=== PATIENT | male | born 1995 | race Caucasian/White ===

== ENCOUNTER 2016-10-17 02:53 | Emergency (ER) | payer OTHER ==
[2016-10-17] MEDS ORDERED: Diphtheria,Pertussis(Acell),Tetanus Vaccine 0.5 ML SDV IM ONE (03:23)
--- NOTE | 2016-10-17 03:23 | EDM.PDOC ---
ED HPI GENERAL MEDICAL PROBLEM - General Chief Complaint: Laceration Stated Complaint: CUT R HAND/NORTON L HAND Time Seen by Provider: 10/17/16 03:10 Source of Information: Reports: Patient History Limitations: Reports: No Limitations - History of Present Illness INITIAL COMMENTS - FREE TEXT/NARRATIVE: The patient is a 20-year-old male with a chief complaint of bilateral hand injuries. His left hand sustained norton to some hot salt water when he was working on an oil well about 4 hours ago. States that he sustained norton to the left hand area. He has some blistering near the base of the thumb. Moderately painful. Additionally, he received a crush injury to the right small finger. This happened just prior to arrival. The patient is left-handed. Moderate pain. No numbness. No weakness. Left Hand Pain Score (Numeric/FACES): 0 Right 5-Little finger Pain Score (Numeric/FACES): 1 - Related Data Allergies Allergy/AdvReac Type Severity Reaction Status Date / Time acetaminophen [From Vicodin] Allergy Nausea and Verified 10/17/16 03:00 Vomiting hydrocodone [From Vicodin] Allergy Nausea and Verified 10/17/16 03:00 Vomiting Home Meds: Home Meds Cephalexin 500 mg PO QID #28 capsule 10/17/16 [Rx] Ibuprofen [IJD: Ibuprofen] 800 mg PO TID PRN #50 tab 10/17/16 [Rx] Ondansetron [Zofran ODT] 4 mg PO Q6H PRN #20 tab.dis 10/17/16 [Rx] oxyCODONE HCl/Acetaminophen [Percocet 5-325 mg Tablet] 1 each PO QID PRN #16 tablet 10/17/16 [Rx] Social & Family History - Tobacco Use Smoking Status *Q: Current Every Day Smoker Years of Tobacco use: 9 Packs/Tins Daily: 1.5 - Caffeine Use Caffeine Use: Reports: Energy Drinks - Recreational Drug Use Recreational Drug Use: No ED ROS GENERAL - Review of Systems Review Of Systems: See Below Constitutional: Reports: No Symptoms Respiratory: Reports: No Symptoms Cardiovascular: Reports: No Symptoms GI/Abdominal: Reports: No Symptoms Musculoskeletal: Reports: Hand Pain ED EXAM, SKIN/RASH Exam: See Below Exam Limited By: No Limitations General Appearance: Alert, WD/WN, No Apparent Distress Eye Exam: Bilateral Eye: Normal Inspection Ears: Normal External Exam Nose: Normal Inspection Throat/Mouth: Normal Inspection, Normal Voice, No Airway Compromise Head: Atraumatic, Normocephalic Neck: Normal Inspection Respiratory/Chest: No Respiratory Distress Cardiovascular: Normal Peripheral Pulses Extremities: Other (Left hand: Dorsal surface of the hand for the base of the thumb to the wrist and distal to the metacarpals is erythematous and warm consistent with superficial and some partial-thickness burn. There are a few clear blisters that are intact at the base of the thumb. Sensation intact throughout, no full-thickness burn. Area of partial thickness burn is a few centimeters by 3 cm. Right hand: Distal tip of the pinky finger is completely crushed. The nail is completely avulsed from the bed and there is a significant nail bed injury. Mild bleeding. Full range of motion. Hand is otherwise uninjured.) ED SKIN PROCEDURES - Laceration/Wound Repair Right Hand Lac/Wound length In cm: 1 Appearance: Subcutaneous, Irregular, Mildly Contaminated Distal NVT: Neuro & Vascular Intact, No Tendon Injury Anesthetic Type: Digital Local Anesthesia - Lidocaine (Xylocaine): 1% Plain Local Anesthetic Volume: 1cc Skin Prep: Providone-Iodine (Betadine) Exploration/Debridement/Repair: Wound Explored, in a Bloodless Field, Explored to Base, No Foreign Material Found Closed with: Sutures Suture Size: other (5-0) # of Sutures: 1 Suture Type: Nylon, Simple Suture Size: other (5-0) # of Sutures: 2 Repaired with: Vicryl Tetanus Status Addressed: Yes Complications: No Progress/Comments: Nail bed stented open with foil, sutures used to tack foil stent in place. Course - Vital Signs Last Recorded V/S: Last Vital Signs Temp 36.9 C 10/17/16 03:00 Pulse 88 10/17/16 05:08 Resp 16 10/17/16 05:08 BP 122/80 10/17/16 05:08 Pulse Ox 96 10/17/16 05:08 - Orders/Labs/Meds Orders: Active Orders 24 hr Category Date Time Status Vaccines to be Administered [RC] PER UNIT ROUTINE Care 10/17/16 03:24 Active Fingers Fifth Digit Rt F9 [CR] Stat Exams 10/17/16 03:03 Taken Meds: Medications Discontinued Medications Generic Name Dose Route Start Last Admin Trade Name Freq PRN Reason Stop Dose Admin Diphtheria/Tetanus/Acell Pertussis 0.5 ml 10/17/16 03:23 10/17/16 03:40 Adacel IM 10/17/16 03:24 0.5 ml .ONCE ONE Administration Fentanyl 50 mcg 10/17/16 03:25 10/17/16 03:36 Sublimaze IVPUSH 50 mcg ONETIME PRN Administration Pain Cefazolin Sodium 1,000 mg/ 50 mls @ 200 mls/hr 10/17/16 03:23 10/17/16 04:57 Sodium Chloride IV 10/17/16 03:37 Not Given ONETIME ONE Cefazolin Sodium/Dextrose 1 gm 50 mls @ 100 mls/hr 10/17/16 03:37 10/17/16 04 :00 / Premix IV 10/17/16 04:06 100 mls/hr STAT STA Administration Cefazolin Sodium/Dextrose Confirm 10/17/16 03:36 10/17/16 04:57 Ancef Administered 10/17/16 03:37 Not Given Dose 50 mls @ as directed .ROUTE .STK-MED ONE Lidocaine HCl 10 ml 10/17/16 03:26 10/17/16 04:57 Xylocaine 1% INJECT 10/17/16 03:27 10 ml ONETIME ONE Administration Silver Sulfadiazine Confirm 10/17/16 04:00 10/17/16 04:56 Silvadene 1% Cream 50 Gm Administered 10/17/16 04:01 Not Given Dose 50 gm TOP .STK-MED ONE Silver Sulfadiazine 50 gm 10/17/16 04:53 10/17/16 04:55 Silvadene 1% Cream 50 Gm TOP 10/17/16 04:54 50 gm ONETIME ONE Administration - Re-Assessments/Exams Free Text/Narrative Re-Assessment/Exam: 10/17/16 03:[address] Young of orthopedics with [facility], he recommended that I tacked down the edges of the lacerated wound and have the patient follow-up with him in his office in 2 days. Recommended that the patient be discharged on antibiotics. Departure - Departure Time of Disposition: 04:19 Disposition: Home, Self-Care 01 Clinical Impression: Laceration of nail bed of finger Qualifiers: Encounter type: initial encounter Qualified Code(s): S61.319A - Laceration without foreign body of unspecified finger with damage to nail, initial encounter Closed fracture of tuft of distal phalanx of finger Qualifiers: Encounter type: initial encounter Qualified Code(s): S62.639A - Displaced fracture of distal phalanx of unspecified finger, initial encounter for closed fracture Finger laceration Qualifiers: Encounter type: initial encounter Finger: little finger Damage to nail status: with damage Foreign body presence: without foreign body Laterality: right Qualified Code(s): S61.316A - Laceration without foreign body of right little finger with damage to nail, initial encounter Partial thickness burn of left hand Qualifiers: Encounter type: initial encounter Burn of hand location: dorsum Qualified Code( s): T23.262A - Burn of second degree of back of left hand, initial encounter - Discharge Information Prescriptions: Cephalexin 500 mg PO QID #28 capsule Ibuprofen [IJD: Ibuprofen] 800 mg PO TID PRN #50 tab PRN Reason: Pain Ondansetron [Zofran ODT] 4 mg PO Q6H PRN #20 tab.dis PRN Reason: Nausea oxyCODONE HCl/Acetaminophen [Percocet 5-325 mg Tablet] 1 each PO QID PRN #16 tablet PRN Reason: Pain Instructions: Finger Fracture, [id number], Laceration Care, Adult, Nail Bed Injury, [id number], Nail Bed Laceration Referrals: PCP,None [Primary Care Provider] - Forms: ED Department Discharge Additional Instructions: 1. Right finger nailbed laceration was repaired with 2 disolvable sutures that will not be removed. Follow up with Dr. [facility] with [facility] in [place] this week Monday. Call this morning to schedule [phone]. 2. Take antibiotic as prescribed 3. Take ibuprofen as prescribed for pain. Take percocet as needed for severe pain. 4. Left hand burn dressing should be changed daily. Wash wound - ok to wash in the shower with gentle soap - then dry, apply antibiotic ointment, and reapply bandage daily until healed. Follow up with a primary doctor as needed or if you have any signs of infection, including increased pain/redness/ swelling or pus in the wound. - My Orders Last 24 Hours: My Active Orders 10/17/16 03:24 Vaccines to be Administered [RC] PER UNIT ROUTINE - Assessment/Plan Last 24 Hours: My Active Orders 10/17/16 03:24 Vaccines to be Administered [RC] PER UNIT ROUTINE
[2016-10-17] MEDS ORDERED: fentaNYL 100 MCG/2 ML SDV IVPUSH PRN (03:25)
[2016-10-17] MEDS ORDERED: Lidocaine 1% 10 ML MDV INJECT ONE (03:26)
[2016-10-17] MEDS ORDERED: ceFAZolin 1 GM in Premix Bag 1 BAG IV STA (03:37)
[2016-10-17] MEDS ORDERED: Silver Sulfadiazine 1% Crm 50 GM Tube TOP ONE ×2 (04:00→04:53)
[2016-10-17 05:10] VITALS: BP 122/80
--- NOTE | 2016-10-17 08:39 | CR ---
Right fifth finger: Four views of the right fifth finger were obtained. Displaced tuft fracture is seen within the distal phalanx of the fifth finger. Soft tissue swelling and soft tissue injury is seen. No additional fracture or other bony abnormality is identified. Impression: 1. Displaced tuft fracture. 2. Soft tissue swelling/injury. Diagnostic code #3
== END 2016-10-17 05:11 | disposition home or self-care (01) ==
LOC: JD.ED 02:53
DX: S62.636A Displaced fracture of distal phalanx of right little finger, initial encounter for closed fracture (principal); S61.316A Laceration without foreign body of right little finger with damage to nail, initial encounter; T23.262A Burn of second degree of back of left hand, initial encounter; F17.210 Nicotine dependence, cigarettes, uncomplicated; Z88.6 Allergy status to analgesic agent; Z23 Encounter for immunization; W23.0XXA Caught, crushed, jammed, or pinched between moving objects, initial encounter; X12.XXXA Contact with other hot fluids, initial encounter; Y92.65 Oil rig as the place of occurrence of the external cause; Y99.0 Civilian activity done for income or pay
CPT/HCPCS: 11760; 73140; 90471; 90715; 96365; 96375; 99284; J0690; J3010